=== PATIENT | male | born 1940 | race Caucasian/White ===

== ENCOUNTER 2020-03-23 17:32 | Emergency (ER) | payer OTHER ==
[~2020-03-23] VITALS: Ht 185.4 cm; Wt 97.5 kg
[~2020-03-23 17:32] MED LIST: ASPI81CH PO; ATOR40TA PO; B-121000 MC2 PO; CEPH500 PO; Coreg12.5 MG PO; Dyazide 37.5-21 EACH PO; GLIP10 PO; Micro-K10 MEQ; TORSE20 PO; Zestril40 MG PO
[2020-03-23 18:15] LABS: BASOPHILS ABSOLUTE AUTO 0.02 K/mm3 (0.00-0.23); BASOPHILS PERCENT AUTO 0 % (0-2); EOSINOPHILS ABSOLUTE AUTO 0.24 K/mm3 (0.00-0.68); EOSINOPHILS PERCENT AUTO 4 % (0-6); Hematocrit 34.3 % (37.0-53.0); Hemoglobin 11.8 g/dL (13.5-17.5); IMMATURE GRAN ABSOLUTE AUTO 0.01 K/mm3 (0.00-0.10); IMMATURE GRAN PERCENT AUTO 0 % (0-1); LYMPHOCYTES ABSOLUTE AUTO 1.13 K/mm3 (0.84-5.20); LYMPHOCYTES PERCENT AUTO 20 % (21-46); MONOCYTES ABSOLUTE AUTO 0.59 K/mm3 (0.16-1.47); MONOCYTES PERCENT AUTO 11 % (4-13); Mean Corpuscular HGB 32.9 pg (26.0-34.0); Mean Corpuscular HGB Conc 34.4 g/dL (31.5-36.5); Mean Corpuscular Volume 96 fL (80-100); Mean Platelet Volume 12.6 fL (9.1-12.4); NEUTROPHILS ABSOLUTE AUTO 3.57 K/mm3 (1.96-9.15); NEUTROPHILS PERCENT AUTO 64 % (41-73); Platelet Count 176 K/mm3 (150-400); RDW Coefficient Variation 12.7 % (11.7-14.2); RDW Standard Deviation 43.9 fL (35.1-46.3); Red Blood Cell Count 3.59 M/mm3 (4.30-5.90); White Blood Cell Count 5.56 K/mm3 (4.00-11.30)
[2020-03-23 18:42] LABS: Alanine Aminotransfer (ALT/SGP 26 U/L (12-78); Albumin, Blood 3.6 g/dL (3.4-5.0); Alk Phos 141 U/L (50-136); Anion Gap 7 mmol/L (6-16); Aspartate Aminotrans (AST/SGOT 17 U/L (12-37); Bilirubin, Total 0.5 mg/dL (0.1-1.0); Blood Urea Nitrogen 30 mg/dL (8-24); Bun/Creatinine Ratio 17.2 (12.0-20.0); CO2, Blood 27 mmol/L (21-32); Calcium, Blood 9.4 mg/dL (8.5-10.1); Chloride, Blood 103 mmol/L (98-108); Creatinine, Blood 1.74 mg/dL (0.60-1.20); Globulin, Blood 3.7 g/dL (2.2-4.0); Glomerular Filtration Rate 40 (60-); Glucose, Blood 280 mg/dL (70-99); Sodium, Blood 137 mmol/L (136-145); Total Protein, Blood 7.3 g/dL (6.4-8.2); Troponin I <0.015 ng/mL (0.000-0.040)
== END 2020-03-23 21:00 | disposition home or self-care (01) ==
LOC: ER 17:32
PROVIDERS: Emergency Medicine
DX: R07.9 Chest pain, unspecified (principal); Z88.5 Allergy status to narcotic agent; Z91.030 Bee allergy status; Z79.899 Other long term (current) drug therapy; Z79.2 Long term (current) use of antibiotics; I10 Essential (primary) hypertension; E11.9 Type 2 diabetes mellitus without complications; Z85.46 Personal history of malignant neoplasm of prostate; E78.5 Hyperlipidemia, unspecified
CPT/HCPCS: 36415; 71045; 80053; 84484; 85025; 93005; 93010; 99285-25

== ENCOUNTER 2021-09-13 14:14 | Inpatient (IN) | payer OTHER ==
[~2021-09-13] VITALS: Ht 185.4 cm; Wt 90.7 kg
[~2021-09-13 14:14] MED LIST changes: -B-121000 MC2 PO; +B-121000 MC3 PO; +CARV25 PO; -Coreg12.5 MG PO
[2021-09-13 15:09] LABS: Albumin, Blood 3.7 g/dL (3.4-5.0); Albumin/Globulin Ratio 0.8 (0.8-1.8); Bilirubin, Total 0.7 mg/dL (0.1-1.0); Bun/Creatinine Ratio 25.5 (12.0-20.0); Creatinine, Blood 1.53 mg/dL (0.60-1.20); Globulin, Blood 4.8 g/dL (2.2-4.0); Potassium, Blood 4.5 mmol/L (3.5-5.5); Total Protein, Blood 8.5 g/dL (6.4-8.2)
[2021-09-13 15:20] LABS: BASOPHILS ABSOLUTE AUTO 0.05 K/mm3 (0.00-0.23); BASOPHILS PERCENT AUTO 0 % (0-2); EOSINOPHILS ABSOLUTE AUTO 0.17 K/mm3 (0.00-0.68); EOSINOPHILS PERCENT AUTO 1 % (0-6); Hematocrit 36.1 % (37.0-53.0); Hemoglobin 12.3 g/dL (13.5-17.5); IMMATURE GRAN ABSOLUTE AUTO 0.14 K/mm3 (0.00-0.10); IMMATURE GRAN PERCENT AUTO 1 % (0-1); LYMPHOCYTES ABSOLUTE AUTO 0.58 K/mm3 (0.84-5.20); LYMPHOCYTES PERCENT AUTO 3 % (21-46); MONOCYTES ABSOLUTE AUTO 1.51 K/mm3 (0.16-1.47); MONOCYTES PERCENT AUTO 7 % (4-13); Mean Corpuscular HGB 31.3 pg (26.0-34.0); Mean Corpuscular HGB Conc 34.1 g/dL (31.5-36.5); Mean Corpuscular Volume 92 fL (80-100); Mean Platelet Volume 12.7 fL (9.1-12.4); NEUTROPHILS ABSOLUTE AUTO 17.99 K/mm3 (1.96-9.15); NEUTROPHILS PERCENT AUTO 88 % (41-73); Platelet Count 363 K/mm3 (150-400); RDW Coefficient Variation 13.3 % (11.7-14.2); RDW Standard Deviation 44.8 fL (35.1-46.3); Red Blood Cell Count 3.93 M/mm3 (4.30-5.90); White Blood Cell Count 20.44 K/mm3 (4.00-11.30)
[2021-09-13 16:03] LABS: Source, Urine Voided
[2021-09-13 16:24] LABS: Appearance, Urine Cloudy (Clear); Bilirubin, Urine Neg (Neg); Blood, Urine 4+ (Neg); Color, Urine Yellow (P-Yellow); Glucose Qualitative, Urine 1+ (Neg); Ketones, Urine Neg (Neg); Leukocyte Esterase, Urine 3+ (Neg); Nitrite, Urine Pos (Neg); Protein, Urine 3+ (Neg); Specific Gravity, Urine 1.015 (1.003-1.022); Urobilinogen, Urine NORM (Normal)
[2021-09-13 17:10] LABS: White Blood Cells, Urine TNTC /hpf (0-5)
[2021-09-13 17:11] LABS: Bacteria Many /hpf; Squamous Epithelial Cells Rare /hpf (Few)
[2021-09-13] MEDS ORDERED: CAMPHOR/MENTHOL TOP (21:32)
[2021-09-13] MEDS ORDERED: CARB10OTL BOTHEARS (21:32)
[2021-09-13] MEDS ORDERED: DOCU100 PO (21:34)
[2021-09-13] MEDS ORDERED: ZESTORETIC 20-121 EA PO (21:36)
[2021-09-13] MEDS ORDERED: BASAGLAR K100 UNIT/1 SC (21:37)
--- NOTE | 2021-09-14 01:13 | NUR ---
ADMISSION NOTE/SHIFT SUMMARY PATIENT ADMITTED TO MEDICAL FLOOR AOX4 ABLE TO PARTICIPATE IN ADMISSION ASSESSMENT PLEASANT MOOD [place] OWN TEETH INTACT.SOME REDNESS TO HIS COOCXY ABD SOFT NONTENDER WITH BOWEL SOUNDS X 4 QUADS.LUNGS SOUMDS CLEAR ALESIA SHAY PAIN AT THIS MOMENT. PT DNR VERIFIED WITH ALEXANDR RN PURPTLE BAND PLACED TO LEFT WRIST.NS RUNNING AT 100ML/HR.STANDBY ASSIST WITH TRANSFERS .
[2021-09-14 05:08] LABS: BASOPHILS ABSOLUTE AUTO 0.05 K/mm3 (0.00-0.23); BASOPHILS PERCENT AUTO 0 % (0-2); EOSINOPHILS ABSOLUTE AUTO 0.05 K/mm3 (0.00-0.68); EOSINOPHILS PERCENT AUTO 0 % (0-6); Hematocrit 31.1 % (37.0-53.0); Hemoglobin 10.5 g/dL (13.5-17.5); IMMATURE GRAN PERCENT AUTO 1 % (0-1); LYMPHOCYTES ABSOLUTE AUTO 0.93 K/mm3 (0.84-5.20); LYMPHOCYTES PERCENT AUTO 4 % (21-46); MONOCYTES ABSOLUTE AUTO 1.98 K/mm3 (0.16-1.47); MONOCYTES PERCENT AUTO 9 % (4-13); Mean Corpuscular HGB 31.8 pg (26.0-34.0); Mean Corpuscular HGB Conc 33.8 g/dL (31.5-36.5); Mean Corpuscular Volume 94 fL (80-100); Mean Platelet Volume 11.9 fL (9.1-12.4); NEUTROPHILS ABSOLUTE AUTO 19.92 K/mm3 (1.96-9.15); NEUTROPHILS PERCENT AUTO 86 % (41-73); Platelet Count 309 K/mm3 (150-400); RDW Coefficient Variation 13.2 % (11.7-14.2); RDW Standard Deviation 45.1 fL (35.1-46.3); White Blood Cell Count 23.13 K/mm3 (4.00-11.30)
[2021-09-14 05:35] LABS: Albumin/Globulin Ratio 0.8 (0.8-1.8); Bilirubin, Total 0.8 mg/dL (0.1-1.0); Bun/Creatinine Ratio 25.2 (12.0-20.0); Creatinine, Blood 1.47 mg/dL (0.60-1.20); Globulin, Blood 3.9 g/dL (2.2-4.0); Potassium, Blood 3.9 mmol/L (3.5-5.5); Total Protein, Blood 6.9 g/dL (6.4-8.2)
--- NOTE | 2021-09-14 17:09 | NUR ---
SUMMARY PT SITTING UP IN BED WATCHING TV, PT HAS BEEN PLEASANT AND COOPERATIVE T/O THE CARE, [place], UP WITH MIN ASSIST, USES THE URINAL AT THE BEDSIDE, NO COMPLAINTS, VSS, WILL CONT TO MONITOR
--- NOTE | 2021-09-15 08:07 | NUR ---
ARCH PAD CEMENTER SUMMARY NO CHANGES FOR RUTH OVERNIGHT. PATIENT IS A PLEASANT ALERT AND ORIENTED GENTLEMAN WHO HAD NO COMPLAINTS OF DISCOMFORT OVERNIGHT. TOLERATINE IV FLUIDS WITHOUT DIFFICULTY. CALLS APPROPRIATELY
[2021-09-15 09:50] LABS: Hematocrit 34.3 % (37.0-53.0); Hemoglobin 11.2 g/dL (13.5-17.5); Mean Corpuscular HGB 31.3 pg (26.0-34.0); Mean Corpuscular HGB Conc 32.7 g/dL (31.5-36.5); Mean Corpuscular Volume 96 fL (80-100); Mean Platelet Volume 12.5 fL (9.1-12.4); Platelet Count 271 K/mm3 (150-400); RDW Coefficient Variation 13.2 % (11.7-14.2); Red Blood Cell Count 3.58 M/mm3 (4.30-5.90); White Blood Cell Count 14.66 K/mm3 (4.00-11.30)
[2021-09-15 09:52] LABS: Albumin, Blood 3.2 g/dL (3.4-5.0); Anion Gap 6 mmol/L (6-16); Blood Urea Nitrogen 31 mg/dL (8-24); Bun/Creatinine Ratio 21.1 (12.0-20.0); CO2, Blood 27 mmol/L (21-32); Calcium, Blood 9.3 mg/dL (8.5-10.1); Chloride, Blood 104 mmol/L (98-108); Creatinine, Blood 1.47 mg/dL (0.60-1.20); Glomerular Filtration Rate 46 (60-); Glucose, Blood 152 mg/dL (70-99); Phosphorus, Blood 2.4 mg/dL (2.5-4.9); Potassium, Blood 3.8 mmol/L (3.5-5.5); Sodium, Blood 137 mmol/L (136-145)
--- NOTE | 2021-09-15 17:31 | NUR ---
SHIFT SUMMARY PATIENT SITTING IN CHAIR WATCHING TV. A&OX4, TANACROSS. PLEASANT AND COOPERATIVE WITH CARE. SBA TO RESTROOM TO MANAGE IV POOL. NO SIGNIFICANT EVENT T/O SHIFT. VSS. WILL CONTINUE TO MONITOR.
--- NOTE | 2021-09-16 03:46 | NUR ---
SUMMARY Received patient AAOX3, no complaint of pain or disconfort voices. Patient is independent in the room. He is at room air. He is still receiving NS AT 100ML/HR. He is Pleasant and cooperative with care. No acute events during this shift. We will continue to monitor patient until report given to the oncoming nurse.
[2021-09-16 08:07] LABS: Hematocrit 30.6 % (37.0-53.0); Hemoglobin 10.1 g/dL (13.5-17.5); Mean Corpuscular HGB 31.3 pg (26.0-34.0); Mean Corpuscular Volume 95 fL (80-100); Platelet Count 275 K/mm3 (150-400); RDW Coefficient Variation 13.1 % (11.7-14.2); RDW Standard Deviation 44.8 fL (35.1-46.3); Red Blood Cell Count 3.23 M/mm3 (4.30-5.90); White Blood Cell Count 9.79 K/mm3 (4.00-11.30)
[2021-09-16 08:19] LABS: Bun/Creatinine Ratio 18.9 (12.0-20.0); Calcium, Blood 9.1 mg/dL (8.5-10.1); Creatinine, Blood 1.43 mg/dL (0.60-1.20); Potassium, Blood 3.7 mmol/L (3.5-5.5)
[2021-09-16] MEDS ORDERED: GLIP10 PO (12:37)
[2021-09-16] MEDS ORDERED: GUAI600T33 PO (12:38)
[2021-09-16] MEDS ORDERED: LISI20 PO (12:38)
[2021-09-16] MEDS ORDERED: VISBIOME 112.51 EACH PO (12:39)
[2021-09-16] MEDS ORDERED: LEVO750 PO (12:39)
--- NOTE | 2021-09-16 14:18 | NUR ---
PT AWAKE SITTING UP TO EOB AT START OF SHIFT. A&O, PLEASANT AND CO-OP. SBA TO BTHRM WITH IV PUMP. PT UP TO SHOWER AFTER BREAKFAST. DR GONZALEZ IN TO SEE PT AND DISCUSS PLAN OF CARE. PT ABLE TO D/C TO HOME AND CONTINUE WITH PO ABX. D/C ORDERS PLACED. MEDS FAXED TO [facility] PER PT REQUEST D/T [facility] BE[facility] CLOS[facility] TODAY. IV SITES D/C'D WNL'S. D/C INSTRUCTIONS REVIEWED WITH PT. PT CALLED AND NEIGHBOR FOR P/U. ASSISTED OUT TO CAR VIA W/C.
== END 2021-09-16 13:32 | disposition home or self-care (01) | DRG 872 ==
LOC: ER 14:14 → MEDS 20:36
PROVIDERS: Emergency Medicine; Internal Medicine; ADMIT Internal Medicine
DX: A41.51 Sepsis due to Escherichia coli [E. coli] (principal); N39.0 Urinary tract infection, site not specified; R47.01 Aphasia; J20.9 Acute bronchitis, unspecified; Z79.4 Long term (current) use of insulin; E11.22 Type 2 diabetes mellitus with diabetic chronic kidney disease; I12.9 Hypertensive chronic kidney disease with stage 1 through stage 4 chronic kidney disease, or unspecified chronic kidney disease; N18.30 Chronic kidney disease, stage 3 unspecified; Z66 Do not resuscitate; E78.5 Hyperlipidemia, unspecified; E83.39 Other disorders of phosphorus metabolism; M19.90 Unspecified osteoarthritis, unspecified site; Z85.46 Personal history of malignant neoplasm of prostate; Z85.828 Personal history of other malignant neoplasm of skin; Z90.79 Acquired absence of other genital organ(s); R53.83 Other fatigue; J32.8 Other chronic sinusitis; Z98.890 Other specified postprocedural states; Z79.82 Long term (current) use of aspirin; Z79.02 Long term (current) use of antithrombotics/antiplatelets
CPT/HCPCS: 36415; 70450; 71045; 80048; 80053; 80069; 81001; 82947; 83036; 83605; 85025; 85027; 87040; 87077; 87086; 87186; 93005; 93010; 94760; 96365; 96366; 96375; 97116; 97161; 99285-25; A9270; J0456; J0696; J1650; J1815; J7030; J7050; J7060

== ENCOUNTER 2022-03-01 11:16 | Emergency (ER) | payer OTHER ==
[~2022-03-01] VITALS: Ht 185.4 cm; Wt 106.6 kg
[~2022-03-01 11:16] MED LIST changes: +BASAGLAR K100 UNIT/1 SC; +CAMPHOR/MENTHOL TOP; +CARB10OTL BOTHEARS; +DOCU100 PO; +GUAI600T33 PO; +LEVO750 PO; +LISI20 PO; +VISBIOME 112.51 EACH PO; +ZESTORETIC 20-121 EA PO
[2022-03-01 12:03] LABS: BASOPHILS ABSOLUTE AUTO 0.03 K/mm3 (0.00-0.23); BASOPHILS PERCENT AUTO 0 % (0-2); EOSINOPHILS ABSOLUTE AUTO 0.17 K/mm3 (0.00-0.68); EOSINOPHILS PERCENT AUTO 3 % (0-6); Hematocrit 37.3 % (37.0-53.0); Hemoglobin 12.7 g/dL (13.5-17.5); IMMATURE GRAN ABSOLUTE AUTO 0.04 K/mm3 (0.00-0.10); IMMATURE GRAN PERCENT AUTO 1 % (0-1); LYMPHOCYTES PERCENT AUTO 15 % (21-46); MONOCYTES ABSOLUTE AUTO 0.73 K/mm3 (0.16-1.47); MONOCYTES PERCENT AUTO 11 % (4-13); Mean Corpuscular HGB 31.5 pg (26.0-34.0); Mean Corpuscular Volume 93 fL (80-100); Mean Platelet Volume 12.7 fL (9.1-12.4); NEUTROPHILS ABSOLUTE AUTO 4.78 K/mm3 (1.96-9.15); NEUTROPHILS PERCENT AUTO 71 % (41-73); Platelet Count 292 K/mm3 (150-400); RDW Coefficient Variation 13.6 % (11.7-14.2); RDW Standard Deviation 46.1 fL (35.1-46.3); Red Blood Cell Count 4.03 M/mm3 (4.30-5.90); White Blood Cell Count 6.75 K/mm3 (4.00-11.30)
[2022-03-01 12:22] LABS: Albumin, Blood 4.2 g/dL (3.4-5.0); Albumin/Globulin Ratio 1.1 (0.8-1.8); Bilirubin, Total 0.8 mg/dL (0.1-1.0); Bun/Creatinine Ratio 21.1 (12.0-20.0); Calcium, Blood 9.9 mg/dL (8.5-10.1); Creatinine, Blood 1.66 mg/dL (0.60-1.20); Globulin, Blood 3.9 g/dL (2.2-4.0); Potassium, Blood 4.7 mmol/L (3.5-5.5); Total Protein, Blood 8.1 g/dL (6.4-8.2)
== END 2022-03-01 15:42 | disposition home or self-care (01) ==
LOC: ER 11:16
PROVIDERS: Physician Assistant
DX: R07.9 Chest pain, unspecified (principal); I10 Essential (primary) hypertension; E11.9 Type 2 diabetes mellitus without complications; E78.5 Hyperlipidemia, unspecified; Z95.0 Presence of cardiac pacemaker; Z79.82 Long term (current) use of aspirin; Z79.899 Other long term (current) drug therapy; Z79.4 Long term (current) use of insulin; Z91.030 Bee allergy status; Z88.5 Allergy status to narcotic agent
CPT/HCPCS: 71045; 80053; 83880; 84484; 85025; 93005; 93010; 99285-25